=== PATIENT | female | born 1965 | race Caucasian/White ===

== ENCOUNTER → 2018-12-01 | Outpatient (CLI) | payer OTHER ==
[2018-12-01 09:56] VITALS: BP 136/93; PULSE 76; RESP 18; TEMP 97.6; BMI 26.4
--- NOTE | 2018-12-01 11:00 | P.HPOB ---
History of Present Illness H&P Date: 12/01/18 Chief Complaint: The patient is here for her routine gynecologic exam. This is a 52-year-old with an LMP of 2013. The patient is here to establish with this office. She has been experiencing some urinary urgency and frequency. A couple of weeks ago she was getting up 15 times per night. She has tried to increase water intake and her symptoms have improved, but she does feel some bladder pressure still. She denies dysuria. She is otherwise without complaints and denies any postmenopausal bleeding. She now lives in [place] but spends much of the summer in [place]. Review of Systems She has gained about 20 pounds which was mostly gained 3 years ago and she attributes this to the menopausal change. During the past year her weight has been stable. She denies respiratory, cardiac, or G.I. problems. Past Medical History Past Medical History: Cancer, Rheumatoid Arthritis (RA) Additional Past Medical History / Comment(s): Basal cell skin cancer. History of osteopenia status post one year use of Boniva. 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 History of Any Multi-Drug Resistant Organisms: None Reported Additional Past Surgical History / Comment(s): Multiple skin cancer removal procedures. The surgery. Colonoscopy 2017(1st next in 5yrs). Past Psychological History: No Psychological Hx Reported Smoking Status: Never smoker Past Alcohol Use History: None Reported Past Drug Use History: None Reported Additional History: She has been since 2012 and this is her 2nd marriage. She and her work with the and are semiretired. - Past Family History Father Family Medical History: Coronary Artery Disease (CAD), Diabetes Mellitus Mother Family Medical History: Hypertension, Osteoarthritis (OA) Medications and Allergies Home Medications Medication Instructions Recorded Confirmed Type Cholecalciferol (Vitamin D3) 2,000 unit PO DAILY 12/01/18 12/01/18 History [Vitamin D3] Hydroxychloroquine Sulfate 200 mg PO HS 12/01/18 12/01/18 History [Plaquenil] Meloxicam [Mobic] 7.5 mg PO DAILY 12/01/18 12/01/18 History Allergies Allergy/AdvReac Type Severity Reaction Status Date / Time latex Allergy Swelling Unverified 12/01/18 09:52 Exam Vital Signs Temp Pulse Resp BP Pulse Ox 12/01/18 09:54 97.6 F 76 18 136/93 99 Intake and Output 11/30/18 12/01/18 12/01/18 22:59 06:59 14:59 Other: Weight 72.121 kg Height 5'5", weight 159 pounds, BMI 26.5. Repeat blood pressure 126/80. This is a well-developed well-nourished white female who is alert and oriented times 3 in no acute distress. HEENT: Within normal limits. NECK: Supple without mass or thyromegaly. CHEST AND LUNGS: Clear to auscultation. HEART: Regular rate and rhythm. BREASTS: Are without mass or discharge. AXILLARY EXAM: Negative for adenopathy. BACK: Negative for CVA tenderness. ABDOMEN: Soft, there is minimal suprapubic tenderness. There are no palpable masses. PELVIC EXAM: Normal external genitalia. Cervix and vagina appear normal with mild atrophy. There is no unusual discharge. There is no evidence of prolapse. The uterus is midposition, nongravid size and nontender. There are no palpable adnexal masses or tenderness. RECTAL EXAM: rectovaginal exam is negative for mass or tenderness and is negative for occult blood. EXTREMITIES: Nontender. IMPRESSION: 1. 52-year-old menopausal female with normal gynecologic exam. 2. Recent urinary urgency and frequency with occasional bladder pressure. Possible cystitis. 3. Mild blood pressure elevation 4. History of osteopenia by bone density testing done in [place] in 2016. She states she used Boniva for one year. PLAN: 1. Pap smear was performed. 2. Self-breast awareness was discussed with the patient. 3. Screening mammogram was recently done in [place] in April 2018. Patient states that was normal. She will repeat this in one year. 4. Clean catch midstream urinalysis and urine culture has been obtained. 5. Osteoporosis prevention was discussed. I have stressed the importance of adequate calcium, vitamin D and regular exercise. Recommended amounts of calcium and vitamin D were also discussed. She states she will get the bone density report done in 2017 and bring it to me so I can have it reviewed. We will plan on repeating potency testing at approximately age 55, or sooner if needed after the bone density report is reviewed. She had a bone density test here on 06/22/2014 and was read as normal. 6. I have recommended that she check your blood pressure on a regular basis. I have recommended that she get her own blood pressure cuff. She will follow up with her primary care doctor for blood pressure elevations. 7. She was advised to return in one year for her annual well woman exam.
== END | disposition home or self-care (01) ==
LOC: WWCWWP 09:38
PROVIDERS: ATTEND Obstetrics & Gynecology
DX: Z53.9 Procedure and treatment not carried out, unspecified reason (principal)

== ENCOUNTER → 2020-08-08 | Outpatient (CLI) | payer OTHER ==
[2020-08-08 08:18] VITALS: BP 124/85; PULSE 84; RESP 18; TEMP 98.3
--- NOTE | 2020-08-08 09:02 | P.HPOB ---
History of Present Illness H&P Date: 08/08/20 Chief Complaint: The patient is here for her routine gynecologic exam and ma mmogram. This is a 54-year-old with an LMP of 2013. The patient is without gynecologic complaints and denies any postmenopausal bleeding. She states she did have Covid last February. She is requesting Covid antibody testing. Review of Systems The patient has gained 14 pounds over the last year. She denies respiratory, cardiac, or G.I. problems. Past Medical History Past Medical History: Cancer, Rheumatoid Arthritis (RA) Additional Past Medical History / Comment(s): Basal cell skin cancer. History of osteopenia status post one year use of Boniva. 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 History of Any Multi-Drug Resistant Organisms: None Reported Additional Past Surgical History / Comment(s): Multiple skin cancer removal procedures. Colonoscopy 2017(1st next in 5yrs). Past Psychological History: No Psychological Hx Reported Smoking Status: Never smoker Past Alcohol Use History: None Reported Past Drug Use History: None Reported Additional History: She has been since 2012 and this is her second marriage. She had her are retired and enjoy boating and spent time during the winter in [place]. - Past Family History Father Family Medical History: Coronary Artery Disease (CAD), Diabetes Mellitus Mother Family Medical History: Hypertension, Osteoarthritis (OA) Medications and Allergies Home Medications Medication Instructions Recorded Confirmed Type Cholecalciferol (Vitamin D3) 2,000 unit PO DAILY 12/01/18 08/08/20 History [Vitamin D3] Hydroxychloroquine Sulfate 200 mg PO HS 12/01/18 08/08/20 History [Plaquenil] Ascorbic Acid [Vitamin C] 500 mg PO DAILY 08/08/20 08/08/20 History Magnesium 200 mg PO DAILY 08/08/20 08/08/20 History Zinc 50 mg PO DAILY 08/08/20 08/08/20 History Allergies Allergy/AdvReac Type Severity Reaction Status Date / Time latex Allergy Swelling Unverified 08/08/20 08:12 Exam Vital Signs Temp Pulse Resp BP Pulse Ox 08/08/20 08:15 98.3 F 84 18 124/85 99 Intake and Output 08/07/20 08/08/20 08/08/20 22:59 06:59 14:59 Other: Weight 78.471 kg Height 5 feet 4-1/2 inches, weight 173 pounds, BMI 29.2. This is a well-developed well-nourished white female who is alert and oriented times 3 in no acute distress. HEENT: Within normal limits. NECK: Supple without mass or thyromegaly. CHEST AND LUNGS: Clear to auscultation. HEART: Regular rate and rhythm. BREASTS: Are without mass or discharge. AXILLARY EXAM: Negative for adenopathy. BACK: Negative for CVA tenderness. ABDOMEN: Soft, nontender, without palpable masses. PELVIC EXAM: Normal external genitalia with mild atrophy. Cervix and vagina appear normal with mild atrophy. There is no unusual discharge. There is no evidence of prolapse. The uterus is midposition, nongravid size and nontender. There are no palpable adnexal masses or tenderness. RECTAL EXAM: Rectovaginal exam is negative for mass or tenderness and is negative for occult blood. EXTREMITIES: Nontender. IMPRESSION: 1. 54-year-old menopausal female with normal gynecologic exam. 2. History of osteopenia status post 1 years use of Boniva. PLAN: 1. Pap smear was deferred since she had a normal one on 12/01/2018. 2. Self breast awareness was discussed with the patient. 3. Screening mammogram will be done today. 4. Osteoporosis prevention was discussed. I have stressed the importance of adequate calcium, vitamin D and regular exercise. Recommended amounts of calcium and vitamin D were also discussed. I have recommended that she repeat her bone density test since her last one was done in approximately 2017. Her last one was done in [place]. 5. The patient is requesting a Covid antibody test. The order slip was given to the patient for this. 6. She is considering whether to get a Covid vaccination. 7. She was advised to return in one year for her annual well woman exam.
--- NOTE | 2020-08-08 11:12 | MM ---
Reason for exam: screening (asymptomatic). Last mammogram was performed 4 years and 7 months ago. History: Patient is postmenopausal and has history of other cancer at age 35. Took hormonal contraceptives for 2 years beginning at age 42. Physical Findings: A clinical breast exam by your physician is recommended on an annual basis and results should be correlated with mammographic findings. MG 3D Screening Mammo W/Cad Bilateral CC and MLO view(s) were taken. Prior study comparison: January 15, 2016, bilateral MG screening mammo w CAD. June 22, 2014, bilateral MG screening mammo w CAD. There are scattered fibroglandular densities. There is no discrete abnormality. ASSESSMENT: Negative, BI-RAD 1 RECOMMENDATION: Routine screening mammogram of both breasts in 1 year.
== END ==
LOC: WWCWWP 07:50
PROVIDERS: ATTEND Obstetrics & Gynecology
DX: Z01.419 Encounter for gynecological examination (general) (routine) without abnormal findings (principal); Z87.39 Personal history of other diseases of the musculoskeletal system and connective tissue; M06.9 Rheumatoid arthritis, unspecified; Z12.31 Encounter for screening mammogram for malignant neoplasm of breast
CPT/HCPCS: 86769; 77067; 77063; C9803

== ENCOUNTER → 2021-08-28 | Outpatient (CLI) | payer OTHER ==
--- NOTE | 2021-08-28 17:04 | BD ---
EXAMINATION TYPE: Axial Bone Density DATE OF EXAM: 08/28/2021 CLINICAL HISTORY: 55 years year old Female. ICD-10 CODE: M89.9 DISORDER OF BONE, UNSPECIFIED Height: 64.5 Weight: 168.9 FRAX RISK QUESTIONS: Alcohol (3 or more units per day): NO Family History (Parent hip fracture): NO Glucocorticoids (More than 3mos): NO History of Fracture in Adulthood: NO Secondary Osteoporosis: 1. Type 1 Diabetes: NO 2. Hyperthyroidism: NO 3. Menopause before 45: NO 4. Malnutrition: NO 5. Chronic liver disease: NO Rheumatoid Arthritis: YES Current Tobacco Use: NO RISK FACTORS HISTORY OF: Hip Fracture (Right/Left): NO Spine Fracture: NO History of Wrist Fracture: NO Surgery to Spine/Hip(right/left)/Wrist (right/left): NO Family History of Osteoporosis: NO Active: YES Diet low in dairy products/other sources of calcium: NO Postmenopausal woman: YES Take estrogen and/or progesterone medications: NO Lost more than 2 inches in height since high school: NO Frequent falls: NO Poor Health: NO Hyperparathyroidism Adrenal Insufficiency: NO MEDICATIONS: Prednisone or other steroids: NO Thyroid Medications: NO Osteoporosis Medications: NO Additional Medications: HYDROXYCHLOROQUINE, VIT D, VIT C, ZINC, MAGNESIUM, CALCIUM Additional History: EXAM MEASUREMENTS: Bone mineral densitometry was performed using the [employer] System. Bone mineral density as measured about the Lumbar spine is: ----- L1-L4(G/cm2): 1.109 T Score Values are as follows: ----- L1: -0.1 ----- L2: -0.6 ----- L3: -0.3 ----- L4: -1.4 ----- L1-L4: -0.6 Bone mineral density has: DDECEASED 11.4% % since study of: 06/22/2014 Bone mineral density about the R hip (g/cm2): 0.885 Bone mineral density about the L hip (g/cm2): 0.839 T Score values are as follows: -----R Neck: -1.1 -----L Neck: -1.4 -----R Total: -0.4 -----L Total: -0.5 Bone mineral density has: DECREASED 1.4 % since study of:06/22/2014 FRAX%s: The graph provided illustrates a 8.5% chance for a major osteoporotic fx and a 0.7% chance fo r the hips probability for fx in 10 years time. IMPRESSION: Osteopenia (T Score between -2.5 and -1). There is slightly increased risk of fracture and the patient may be considered for treatment. Re-Screen 2-5 years. NOTE: T-SCORE=SD OF THE YOUNG ADULT MEAN.
== END | disposition home or self-care (01) ==
LOC: RADBDWWP 10:48
PROVIDERS: ATTEND Internal Medicine
DX: M85.89 Other specified disorders of bone density and structure, multiple sites (principal); Z78.0 Asymptomatic menopausal state
CPT/HCPCS: 77080

== ENCOUNTER → 2022-10-22 | Outpatient (CLI) | payer OTHER ==
[2022-10-22 07:50] VITALS: BP 129/87; PULSE 82; RESP 16; TEMP 98
--- NOTE | 2022-10-22 08:34 | P.HPOB ---
History of Present Illness H&P Date: 10/22/22 Chief Complaint: The patient is here for her routine gynecologic exam and ma mmogram. This is a 56-year-old with an LMP of 2013. The patient is without gynecologic complaints and denies any postmenopausal bleeding. Review of Systems The patient's weight has been stable over the last year. She denies respiratory, cardiac, or G.I. problems. Past Medical History Past Medical History: Cancer, Hyperlipidemia, Rheumatoid Arthritis (RA) Additional Past Medical History / Comment(s): Basal cell skin cancer. History of osteopenia status post one year use of Boniva. 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 History of Any Multi-Drug Resistant Organisms: None Reported Additional Past Surgical History / Comment(s): Multiple skin cancer removal procedures. Colonoscopy 2017(1st next in 5yrs). Past Psychological History: No Psychological Hx Reported Smoking Status: Never smoker Past Alcohol Use History: None Reported Past Drug Use History: None Reported Additional History: She has been since 2012 and this is her second marriage. She is retired. She and her enjoy boating and spend time during the winter in [place] - Past Family History Father Family Medical History: Coronary Artery Disease (CAD), Diabetes Mellitus Mother Family Medical History: Hypertension, Osteoarthritis (OA) Medications and Allergies Home Medications Medication Instructions Recorded Confirmed Type Cholecalciferol (Vitamin D3) 2,000 unit PO DAILY 12/01/18 10/22/22 History [Vitamin D3] Hydroxychloroquine Sulfate 200 mg PO HS 12/01/18 10/22/22 History [Plaquenil] Magnesium 200 mg PO DAILY 08/08/20 10/22/22 History Allergies Allergy/AdvReac Type Severity Reaction Status Date / Time latex Allergy Swelling Unverified 10/22/22 07:46 Exam Vital Signs Temp Pulse Resp BP Pulse Ox 10/22/22 07:47 98 F 82 16 129/87 97 Intake and Output 10/21/22 10/22/22 10/22/22 22:59 06:59 14:59 Other: Weight 77.564 kg Height 5 feet 5 inches, weight 171 pounds, BMI 28.5. This is a well-developed well-nourished white female who is alert and oriented times 3 in no acute distress. HEENT: Within normal limits. NECK: Supple without mass or thyromegaly. CHEST AND LUNGS: Clear to auscultation. HEART: Regular rate and rhythm. BREASTS: Are without mass or discharge. AXILLARY EXAM: Negative for adenopathy. BACK: Negative for CVA tenderness. ABDOMEN: Soft, nontender, without palpable masses. PELVIC EXAM: Normal external genitalia with mild atrophy. Cervix and vagina appear normal with mild atrophy. The cervix appears nulliparous with a slightly stenotic cervix secondary to atrophy. There is no unusual discharge. There is no evidence of prolapse. The uterus is midposition, nongravid size and nontender. There are no palpable adnexal masses or tenderness. RECTAL EXAM: Rectovaginal exam is negative for mass or tenderness and is negative for occult blood. EXTREMITIES: Nontender. IMPRESSION: 1. 56-year-old menopausal female with normal gynecologic exam. 2. History of osteopenia by bone density test done in [place] in 2017. She is status post 1 year use of Boniva. PLAN: 1. Pap smear cotest was performed. 2. Self breast awareness was discussed with the patient. We have also discussed symptoms associated with inflammatory breast cancer. 3. Screening mammogram was done today. 4. Osteoporosis prevention was discussed. I have stressed the importance of adequate calcium, vitamin D and regular exercise. Recommended amounts of calcium and vitamin D were also discussed. She will send me the bone density test that was done in [place] in 2017. After reviewing the bone density test we can determine if we can wait until age 60 to do another bone density test or if we should do it sooner appear 5. She will check with her PCP or the doctor who did her colonoscopy in the past, to see when her next colonoscopy is due. Her last one was done approximately 2017. 6. She was advised to return in one year for her annual well woman exam.
--- NOTE | 2022-10-22 10:18 | MM ---
Reason for Exam: Screening (asymptomatic). Last mammogram was performed 2 year(s) and 3 month(s) ago. Patient History: Menarche at age 11. First Full-Term at age 24. Postmenopausal. Patient has history of breast feeding. Hormonal Contraceptives, starting at age 42 for 2 years. Risk Values: Tanja 5 year model risk: 1.2%. NCI Lifetime model risk: 7.9%. Prior Study Comparison: 06/22/2014 Bilateral Screening Mammogram, [facility]. 01/15/2016 Bilateral Screening Mammogram, [facility]. 08/08/2020 Bilateral Screening Mammogram, [facility]. Tissue Density: The breast tissue is almost entirely fat. Findings: Analyzed By CAD. There is no suspicious group of microcalcifications or new suspicious mass in either breast. Overall Assessment: Negative, BI-RAD 1 Management: Screening Mammogram of both breasts in [address] [facility] will attempt to contact patient to return for supplemental views and ultrasound if indicated. Patient should continue monthly self-breast exams. A clinical breast exam by your physician is recommended on an annual basis. This exam should not preclude additional follow-up of suspicious palpable abnormalities. Note on Tanja scores and lifetime risk: 1. A Tanja score greater than 3% is considered moderate risk. If this is the case, consider specialist referral to assess eligibility for a risk reducing agent. 2. If overall lifetime risk for the development of breast cancer is 20% or higher, the patient may qualify for future screening with alternating mammogram and breast MRI. Electronically signed and approved by: Jan Alaniz DO
== END | disposition home or self-care (01) ==
LOC: RADMAMWWP 07:20
PROVIDERS: ATTEND Obstetrics & Gynecology
DX: Z12.31 Encounter for screening mammogram for malignant neoplasm of breast (principal); Z01.419 Encounter for gynecological examination (general) (routine) without abnormal findings; Z78.0 Asymptomatic menopausal state
CPT/HCPCS: 77063; 77067

== ENCOUNTER → 2023-12-12 | Outpatient (CLI) | payer OTHER ==
--- NOTE | 2023-12-16 08:48 | MM ---
Reason for Exam: Screening (asymptomatic). Last mammogram was performed 1 year(s) and 1 month(s) ago. Patient History: Menarche at age 11. First Full-Term at age 24. Postmenopausal. Patient has history of breast feeding. Hormonal Contraceptives, starting at age 42 for 2 years. Risk Values: Tanja 5 year model risk: 1.3%. NCI Lifetime model risk: 7.7%. Prior Study Comparison: 01/15/2016 Bilateral Screening Mammogram, [facility]. 08/08/2020 Bilateral Screening Mammogram, [facility]. 10/22/2022 Bilateral MG 3D screening mammo w/cad, [facility]. Tissue Density: There are scattered areas of fibroglandular density. Findings: Analyzed By CAD. There is no suspicious group of microcalcifications or new suspicious mass in either breast. Overall Assessment: Benign, BI-RAD 2 Management: Screening Mammogram of both breasts in 1 year. . Patient should continue monthly self-breast exams. A clinical breast exam by your physician is recommended on an annual basis. This exam should not preclude additional follow-up of suspicious palpable abnormalities. Note on Tanja scores and lifetime risk: 1. A Tanja score greater than 3% is considered moderate risk. If this is the case, consider specialist referral to assess eligibility for a risk reducing agent. 2. If overall lifetime risk for the development of breast cancer is 20% or higher, the patient may qualify for future screening with alternating mammogram and breast MRI. Electronically signed and approved by: Avelino Manzano M.D. Radiologis
== END | disposition home or self-care (01) ==
LOC: RADMAMWWP 08:11
PROVIDERS: ATTEND Family Medicine
DX: Z12.31 Encounter for screening mammogram for malignant neoplasm of breast
CPT/HCPCS: 77063; 77067